=== PATIENT | male | born 1995 | race Caucasian/White ===

== ENCOUNTER 2017-06-13 14:43 | Emergency (ER) | payer MEDICAID, BC | END 2017-06-13 15:27 | disposition home or self-care (01) | LOC: E/R 15:27 | DX: B86 Scabies (principal); Z87.891 Personal history of nicotine dependence | CPT/HCPCS: 99283; Z7502 ==

== ENCOUNTER 2017-10-26 23:53 | Emergency (ER) | payer SELFPAY, MEDICAID | END 2017-10-27 02:53 | disposition left against medical advice (07) | LOC: FTE 23:53 | DX: Z53.21 Procedure and treatment not carried out due to patient leaving prior to being seen by health care provider (principal) ==

== ENCOUNTER 2018-01-13 12:59 | Emergency (ER) | payer BC, MEDICAID | END 2018-01-13 14:42 | disposition home or self-care (01) | LOC: FTE 12:59 | DX: K21.9 Gastro-esophageal reflux disease without esophagitis (principal); F12.90 Cannabis use, unspecified, uncomplicated; R40.2412 Glasgow coma scale score 13-15, at arrival to emergency department | CPT/HCPCS: 93005; 99283-25 ==